=== PATIENT | female | born 2000 | race Caucasian/White ===

== ENCOUNTER 2021-03-06 17:21 | Observation (INO) ==
[2021-03-06 18:28] LABS: ABS Eosinophils 0.1 10^3/ul (0-0.6); ABS Lymphocytes 2.1 10^3/ul (1.0-4.8); ABS Monocytes 0.6 10^3/ul (0-0.8); Eosinophil % 0.5 %; Hematocrit 43 % (35-47); Hemoglobin 15.2 g/dL (12.0-16.0); Lymphocyte % 19.2 %; Mean Corpuscular HGB Conc 35 g/dL (31-36); Mean Corpuscular Hemoglobin 30 pg (27-31); Mean Corpuscular Volume 85 fL (80-97); Mean Platelet Volume 7.7 fL (7.4-10.4); Platelet Count 545 10^3/uL (150-450); Red Cell Distribution Width 13 % (10-15); White Blood Count 10.7 10^3/uL (3.5-10.8)
[2021-03-06 18:49] LABS: ALT 16 U/L (7-52); AST 18 U/L (13-39); Albumin/Globulin Ratio 1.2 (1-3); Alkaline Phosphatase 104 U/L (35-149); Anion Gap 12 mmol/L (2-11); Blood Urea Nitrogen 10 mg/dL (6-24); CO2 Carbon Dioxide 23 mmol/L (22-32); Calcium 10.5 mg/dL (8.6-10.3); Chloride 102 mmol/L (101-111); Globulin 4.1 g/dL (2-4); Glucose 101 mg/dL (70-100); Potassium 3.8 mmol/L (3.5-5.0); Sodium 137 mmol/L (135-145); Total Protein 9.1 g/dL (6.4-8.9)
[2021-03-06 18:53] LABS: HCG Pregnancy < 0.60 mIU/mL
[2021-03-06 18:54] LABS: Acetaminophen < 15 mcg/mL; Alcohol, S < 13 mg/dL (<13); Salicylate < 2.50 mg/dL (<30)
[2021-03-06 19:43] LABS: Rapid COVID-19 Molecular Undetected (Undetected)
[2021-03-06 19:59] LABS: Urine Appearance Clear; Urine Bilirubin Negative (Negative); Urine Blood Negative (Negative); Urine Color Yellow; Urine Glucose Negative (Negative); Urine Ketones Negative (Negative); Urine Nitrite Negative (Negative); Urine Protein Negative (Negative); Urine Specific Gravity 1.011 (1.002-1.030); Urine Urobilinogen Negative (Negative)
[2021-03-06 20:21] LABS: Urine Benzodiazepine Screen None Detected (None Detect); Urine Cannabinoids Screen None Detected (None Detect); Urine Opiates Screen None Detected (None Detect)
[2021-03-06 20:41] LABS: Magnesium 2.2 mg/dL (1.9-2.7)
[2021-03-06 20:57] LABS: TSH Ultra Thyroid Stim Horm 0.87 mcIU/mL (0.34-5.60)
[2021-03-06] MEDS ORDERED: NS 0.9% 1000 ml BAG 1,000 ML IV ONE (21:17)
[2021-03-07 05:54] LABS: ABS Eosinophils 0.1 10^3/ul (0-0.6); ABS Monocytes 0.7 10^3/ul (0-0.8); ABS Neutrophils 5.5 10^3/ul (1.5-7.7); Eosinophil % 1.6 %; Hematocrit 39 % (35-47); Hemoglobin 13.1 g/dL (12.0-16.0); Lymphocyte % 23.5 %; Mean Corpuscular HGB Conc 33 g/dL (31-36); Mean Corpuscular Hemoglobin 29 pg (27-31); Mean Corpuscular Volume 86 fL (80-97); Mean Platelet Volume 7.5 fL (7.4-10.4); Platelet Count 474 10^3/uL (150-450); Red Blood Count 4.56 10^6 /uL (3.70-4.87); Red Cell Distribution Width 13 % (10-15); White Blood Count 8.3 10^3/uL (3.5-10.8)
[2021-03-07 06:11] LABS: Albumin 3.8 g/dL (3.2-5.2); Albumin/Globulin Ratio 1.3 (1-3); EGFR African American 206.6 (>60); EGFR Non-African American 170.7 (>60); Potassium 3.7 mmol/L (3.5-5.0); Total Bilirubin 0.3 mg/dL (0.2-1.0); Total Protein 6.8 g/dL (6.4-8.9)
[2021-03-07] MEDS ORDERED: Amphetamine MIXED SALT 10mgTAB PO SCH ×2 (09:00→14:00)
[2021-03-07 20:08] VITALS: BP 118/70
[2021-03-11 12:45] LABS: Albumin 3.3 g/dL (3.4-4.7); Albumin/Globulin Ratio 0.94; Total Protein(PEP) 6.7 g/dL (6.3 - 7.9)
== END 2021-03-07 17:50 | disposition home or self-care (01) ==
LOC: MEDTELE 17:21 → ED 17:21 → SUATTDRO 03-07 00:06
PROVIDERS: ADMIT Internal Medicine; ATTEND Internal Medicine